=== PATIENT | female | born 2000 ===

== ENCOUNTER 2024-06-18 04:37 | Emergency (ER) | payer MEDICAID, OTHER ==
[~2024-06-18] VITALS: Ht 160 cm; Wt 75.2 kg
--- NOTE | 2024-06-18 04:52 | ED.PDOC ---
History of Present Illness HPI Comments 23 year old female came to ER for breast pain. Patient is a , currently mother. At about 12 mn, she started experiencing left breast pain with minimal milk being expressed. Noted chills and headaches. No fever noted. 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 Family History Family History: Reviewed,noncontributory to illness Social History Smoker: Non-Smoker Alcohol: Denies ETOH Use Drugs: Denies Drug Use Lives In: Home Constitutional: denies: chills, diaphoresis, fatigue, fever, malaise, sweats, weakness, others EENTM: denies: blurred vision, double vision, ear bleeding, ear discharge, ear drainage, ear pain, ear ringing, eye pain, eye redness, hearing loss, mouth pain, mouth swelling, nasal discharge, nose bleeding, nose congestion, nose pain, photophobia, tearing, throat pain, throat swelling, voice changes, others Respiratory: denies: cough, hemoptysis, orthopnea, SOB at rest, shortness of breath, SOB with excertion, stridor, wheezing, others Cardiovascular: reports: others (left breast pain); denies: chest pain, dizzy spells, diaphoresis, Dyspnea on exertion, edema, irregular heart beat, left arm pain, lightheadedness, palpitations, PND, syncope Gastrointestinal: denies: abdomen distended, abdominal pain, blood streaked bowels, constipated, diarrhea, dysphagia, difficulty swallowing, hematemesis, melena, nausea, poor appetite, poor fluid intake, rectal bleeding, rectal pain, vomiting, others Genitourinary: denies: abnormal vagina bleeding, burning, dyspareunia, dysuria, flank pain, frequency, hematuria, incontinence, pain, , vagina discharge, urgency, others Neurological: denies: dizziness, fainting, headache, left sided numbness, left sided weakness, numbness, paresthesia, pre-existing deficit, right sided numbness, right sided weakness, seizure, speech problems, tingling, tremors, weakness, others Musculoskeletal: denies: back pain, gout, joint pain, joint swelling, muscle pain, muscle stiffness, neck pain, others Integumetry: denies: bruises, change in color, change in hair/nails, dryness, laceration, lesions, lumps, rash, wounds, others Allergic/Immunocompromised: denies: Difficulty Healing, Frequent Infections, Hives, Itching, others Hematologic/Lymphatic: denies: anemia, blood clots, easy bleeding, easy bruising, swollen glands, others Endocrine: denies: excessive hunger, excessive sweating, excessive thirst, excessive urination, flushing, intolerance to cold, intolerance to heat, unexplained weight gain, unexplained weight loss, others Psychiatric: denies: anxiety, bipolar disorder, depression, hopeless, panic disorder, schizophrenia, sleepless, suicidal, others Physical Exam General Appearance: No Apparent Distress, Normal HEENT: Normal ENT Inspection, Pharynx Normal, TMs Normal Neck: Full Range of Motion, Non-Tender, Normal, Normal Inspection Respiratory: Chest Non-Tender, Lungs Clear, No Accessory Muscle Use, No Respiratory Distress, Normal Breath Sounds Cardiovascular: No Edema, No JVD, No Murmur, No Gallop, Normal Peripheral Pulses, Regular Rate/Rhythm Breast Exam: (L) Tenderness (around the nipple, no redness, no swelling, breastmilk is expressed) Gastrointestinal: No Organomegaly, Non Tender, No Pulsatile Mass, Normal Bowel Sounds, Soft Genitalia: Deferred Pelvic: Deferred Rectal: Deferred Extremities: No calf tenderness, Normal capillary refill, Normal inspection, Normal range of motion, Non-tender, No pedal edema Musculoskeletal : Apperance: Normal Neurologic: Alert, aerial gunner II-XII nml as Tested, No Motor Deficits, Normal Affect, Normal Mood, No Sensory Deficits Cerebellar Function: Normal Reflexes: Normal Skin: Dry, Normal Color, Warm Lymphatic: No Adenopathy Was a procedure done? Was a procedure done?: No Differential Dx Considerations may include: abscess, cellulitis, mastitis, breast mass Time of 1ST Reevaluation: 04:44 Reevaluation 1ST: Unchanged Patient Education/Counseling: Diagnosis, Treatment, Prognosis, Need For Follow Up Family Education/Counseling: Need For Follow Up Additional Information Previous visit documents reviewed: The following tests were ordered, and results were reviewed by me: Additional Information was gathered from interviewing the following independent historians: I reviewed and agreed with the following test results read by other providers: I discussed treatment and results with medical personnel and: Patient Comprehensive systems review obtained and negative except for what is stated in the HPI. pt likely has early mastitis. i advised her to continue to pump and breast feed, use warm compress. i will start her on keflex Departure 1 Departure Time of Disposition: 04:55 Impression: Primary Impression: Mastitis Disposition: 01 HOME / SELF CARE / HOMELESS Condition: Good e-Prescriptions Ibuprofen Micronized (MOTRIN TABLET) 600 Mg Tb 600 MG PO TID PRN, #40 TAB *Black box warning-NSAIDS can increase risk of [place] & hypertension, GI irritation, ulceration, bleed, perferation. Do not use post cardiac surgery. Use short duration/lowest effective dose. Prov: AMINA TRIPLETT MD 06/18/24 Cephalexin Monohydrate (Cephalexin) 500 Mg Tab 500 MG PO Q6HR for 7 Days, #28 TAB Prov: AMINA TRIPLETT MD 06/18/24 Discharged With: Self Critical Care Note Critical Care Time?: No Stability Stability form required: No Heart Score Heart Score: Heart Score Response (Comments) Value History N/A 0 EKG N/A 0 Age N/A 0 Risk Factors N/A 0 Troponin N/A 0 Total 0 I personally scribed for AMINA TRIPLETT MD ([email or web address]) on 06/18/24 at 04:52. Electronically submitted by Samson Russell ([email or web address]). AMINA TRIPLETT MD Jun 18, 2024 04:52
[2024-06-18] MEDS ORDERED: IBU600T PO (04:58)
[2024-06-18] MEDS ORDERED: CEPH500T PO (04:58)
[2024-06-18 05:06] VITALS: BP 100/62; TEMP 99.4
[2024-06-18 05:08] VITALS: PULSE 111; RESP 16; O2SAT 98
[2024-06-18] MEDS ORDERED: IBUPROFEN 800 MG TAB PO ONE (05:15)
== END 2024-06-18 05:06 | disposition home or self-care (01) ==
LOC: ER 04:37
DX: N61.0 Mastitis without abscess (principal)